=== PATIENT | female | born 1970 | race Caucasian/White ===

== ENCOUNTER 2021-08-17 10:02 | Emergency (ER) | payer MEDICAID, SELFPAY ==
--- NOTE | ~2021-08-17 | CT_ITS ---
EXAMINATION: CT HEAD W/O IV CONTRAST CT CERVICAL SPINE W/O IV CONTRAST CLINICAL INFORMATION: 50-year-old female with history of fall, head strike, headache and neck pain. COMPARISON: Head CT and C-spine CT from 06/01/2020. TECHNIQUE: Head - Contiguous axial imaging of the head was performed from the skull base to the vertex without the administration of intravenous contrast, and axial images are reconstructed at 2 mm and 5 mm slice thickness. Cervical spine - A volumetric, helical CT acquisition of the cervical spine was obtained without contrast; in addition to the standard set of axial images, multiplanar reformatted images were provided in the coronal and sagittal imaging planes. This CT examination was performed using dose optimization techniques as appropriate, variously including the following: *Automated exposure control *Adjustment of mA and/or kV according to patient size (this includes techniques or standardized protocols for targeted exams where dose is matched to indication/reason for exam; i.e. extremities or head) *Use of iterative reconstruction technique DLP: 1314 mGy-cm (total) FINDINGS: HEAD: No acute abnormality. No evidence of intracranial hemorrhage, major vascular territory infarction, focal mass effect or midline shift. Toussaint to white matter differentiation is preserved. The ventricles have normal size and configuration. No extra-axial fluid collections. The calvarium is intact and the visualized paranasal sinuses, mastoid air cells and middle ear cavities are clear. The temporomandibular joints are unremarkable. The visualized orbits and globes are intact. CERVICAL SPINE: The craniocervical junction is normal. The occipital condyles, dens and atlantodental articulation are intact. The vertebral body heights and alignment are maintained. No fractures in the anterior or posterior elements. No prevertebral soft tissue swelling. Prior discectomy and anterior fusion at C5-C6 and C6-C7. No hardware loosening. Prominent anterior osteophytes are noted at C3 and C4 levels. Mild degenerative narrowing of disc space and anterior osteophyte formation at C7-T1. The posterior osteophytes and/or posterior ligament ossification at the level of spinal fusion chronically narrow the central spinal canal to approximately 0.9 -1 cm AP dimension. The hypertrophied right-sided uncovertebral joint at C6-C7 causes moderate to high-grade foraminal stenosis. No spinal hematoma or focal fluid collection in the visualized neck. The examined lung apices are clear. A noncalcified, hypodense nodule in the inferior left thyroid lobe measures up to 1.3 cm maximum dimension. No follow-up imaging recommended. Note that follow-up imaging is not typically recommended for incidentally detected thyroid nodules of less than 1.5 cm size. There is a bone island of the medial left clavicle. No suspicious osseous lesion.. CT/CT cervical spine wo con IMPRESSION: * No acute intracranial pathology. * No fracture or malalignment in the degenerated and surgically fused cervical spine.
--- NOTE | ~2021-08-17 | XR_ITS ---
EXAMINATION: XR KNEE, LEFT CLINICAL INFORMATION: Fall. Knee pain. COMPARISON: None TECHNIQUE: Four views of the left knee. FINDINGS: Bones have normal alignment. No acute fracture, subluxation or joint effusion. There is an enthesophyte at the lower pole of the patella. Small osteophytes are present at the medial tibiofemoral compartment. XR/XR knee LT 4V IMPRESSION: * No fracture or malalignment at the left knee. * Mild osteoarthritis of the medial tibiofemoral compartment.
[2021-08-17 10:03] VITALS: BP 145/76; PULSE 73; RESP 18; TEMP 36.8; O2SAT 96; BMI 37.1
--- NOTE | 2021-08-17 10:17 | ED.FALL ---
HPI - Fall General Chief Complaint: Fall Stated Complaint: fall l knee inj Time Seen by Provider: 08/17/21 10:13 Source: patient Mode of arrival: ambulatory Limitations: no limitations History of Present Illness HPI Narrative: 50-year-old female past medical history significant for depression and hypertension presents to the emergency department with complaints of left knee pain, headache, upper lip pain status post slip and fall this morning. Patient tells me she was downstairs in her basement, she slipped on a wet patch, falling forward she landed on all fours, hit her left knee, banged her head very hard on cement. She tells me that she bit her upper lip when she fell. Since the fall she has been having a severe generalized headache, denies vision changes or photophobia. Patient tells me her head has never hurt that bad before. She is complaining of left knee pain that is worse with movement better at rest. She tells me that there is an abrasion to the left knee. She denies loss of consciousness, chest pain, shortness of breath, fevers, chills, abdominal pain, weakness, dizziness, vision changes, photophobia, tinnitus, neck pain. complaint: fall Onset (ago): hour(s) (1) Fall from: standing Fall witnessed: no Place fall occurred: home Loss of consciousness: none Prolonged down time: no Symptoms prior to fall: none Context: tripped/slipped Location of injury: head and other (left knee ) Severity: severe Severity scale (1-10): 10 Quality: throbbing Associated symptoms (after fall): headache Related Data Previous Rx's Medication Instructions Recorded cyclobenzaprine 10 mg tablet 10 mg PO BEDTIME PRN #7 tab 08/17/21 lidocaine 5 % topical patch 1 patch TOPICAL DAILY PRN #15 ea 08/17/21 naproxen 500 mg tablet 500 mg PO BID PRN #14 tab 08/17/21 Allergies Allergy/AdvReac Type Severity Reaction Status Date / Time bupropion [From WELLBUTRIN] Allergy Unknown UNKNOWN Unverified 06/07/20 15:03 Sulfa (Sulfonamide Allergy Unknown UNKNOWN Unverified 06/07/20 15:03 Antibiotics) [SULFA (SULFONAMIDE ANTIBIOTICS)] Review of Systems Review of Systems: Constitutional : No Weight loss, No Fever, No Chills, No Fatigue, No Malaise ENT/Mouth : No sore throat, No Rhinorrhea Eyes: No Eye Pain, No Swelling, No Redness Cardiovascular : No Chest Pain, No SOB, No Dyspnea on Exertion, No Orthopnea, No Edema, No Palpitations Respiratory : No Cough, No Sputum, No Wheezing Gastrointestinal : No Nausea, No Vomiting, No Diarrhea, No Constipation, No abdominal Pain, No Hematochezia, No Melena Genitourinary : No Dysuria, No Urinary Frequency, No Hematuria, Musculoskeletal : + joint pain, No Myalgias, No Joint Swelling Skin : No Skin Lesions, No rash, + cut on lip Neuro : No Weakness, No Numbness, No Dizziness, + Headache All other systems reviewed and are negative [facility] Past Medical History Attestation statement: The following information was validated with the patient. Source: old records reviewed and nursing notes reviewed Medical History (Updated 08/17/21 @ 11:59 by STEVEN Hathaway) Depression HTN (hypertension) Social History Social History Advance Directives: No Advance Directives Information Provided: No Patient : No Physical Exam Vital Signs: Vital Signs: Last Vital Signs Temp 98.2 F 08/17/21 10:03 Pulse 73 08/17/21 10:03 Resp 19 08/17/21 11:35 BP 145/76 H 08/17/21 10:03 Pulse Ox 96 08/17/21 10:03 Body Mass Index 37.1 Vital signs are stable, patient noted to be slightly hypertensive. Appearance: Alert.? Oriented X3.? No acute distress.? Head: Normocephalic, atraumatic, no step-offs or deformities. No meningeal sings Eyes: Pupils equal, round and reactive to light.?EOMI ENT: Pharynx normal.?+ small puncture wound to upper lip + pain with palpation of nose. Neck: Normal inspection.? Neck supple.? CVS: Normal heart rate and rhythm.? Pulses normal.? Respiratory: No respiratory distress.? Breath sounds normal.? Abdomen: Soft and nontender.? Skin: Skin warm and dry.? Normal skin color.? Normal skin turgor.?+ small abrasion to left knee Extremities: No lower extremity edema.? No calf ttp. 5/5 strength to bilateral upper and lower extremities Back: No midline tenderness, no C-spine tenderness, full range of motion, no CVA tenderness bilaterally Neuro: Oriented X 3.? No motor deficit.? No sensory deficit. 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 Course Reevaluation(s) Reevaluation #1: X-ray of the left knee shows osteoarthritis. CT of the head/cervical spine shows degenerative changes, an incidental finding of a left-sided thyroid nodule, no intracranial hemorrhage, stroke or fractures noted. At this time patient is safe for discharge home with PCP follow-up. She has been advised to return to the emergency department with new or worsening symptoms. Patients symptoms likely secondary to fall, likely concussion. Time: 11:58 MDM - Fall MDM Narrative Medical decision making narrative: 1018 50-year-old female past medical history significant for depression and hypertension presents to the emergency department with complaints of left knee pain, headache and pain to upper lip status post trip and fall this am in her basement. No LOC. Not on thinners. Upon physical examination patient appears well, she is in no acute distress. Vital signs are stable, slightly hypertensive. S1-S2 appreciated free of murmurs. Rapid regular rhythm is noted. Lungs are clear to auscultation. Head normocephalic, atraumatic no step-offs or deformities. Pupils equal round and reactive to light bilaterally, extraocular movements intact. No C-spine tenderness. Full range of motion to neck. No meningeal signs. There is a small puncture wound noted to the upper lip, no need for repair at this time. No broken teeth. Patient reports pain with palpation of nose, no deformities or step-offs noted. There is a small abrasion noted to the left knee. Bilateral upper and lower extremities with full range of motion, and 5/5 strength. No focal neuro deficits. Patient ambulating with a steady gait. Plan at this time give toradol for headache. CT head and neck rule out fractures/ICH. No need to intervene on abrasions, can not suture these. Medical Records Attestation: I reviewed the patient's medical records. Lab Data Attestation: I reviewed the patient's lab results. Imaging Data Left knee Xray : Attestation: I personally reviewed and interpreted this imaging study as follows: Radiologist's impression: XR/XR knee LT 4V IMPRESSION: *? No fracture or malalignment at the left knee. *? Mild osteoarthritis of the medial tibiofemoral compartment. ? CT head/c-sspine : Attestation: I personally reviewed and interpreted this imaging study as follows: Radiologist's impression: CT/CT head/brain wo con IMPRESSION: *? No acute intracranial pathology. *? No fracture or malalignment in the degenerated and surgically fused cervical spine. Critical Care Time Critical Care Time Critical Care Time: No Discharge Plan Discharge Clinical Impression: Thyroid nodule Fall Qualifiers: Encounter type: initial encounter Qualified Code(s): W19.XXXA - Unspecified fall, initial encounter Headache Qualifiers: Headache type: unspecified Headache chronicity pattern: acute headache Intractability: intractable Qualified Code(s): R51.9 - Headache, unspecified Concussion without loss of consciousness Qualifiers: Encounter type: initial encounter Qualified Code(s): S06.0X0A - Concussion without loss of consciousness, initial encounter Osteoarthritis Qualifiers: Osteoarthritis location: knee Osteoarthritis type: primary Laterality: left Qualified Code(s): M17.12 - Unilateral primary osteoarthritis, left knee Patient Disposition: Home, Self-Care Instructions: Acute Headache (ED), Fall Prevention (ED) Additional Instructions: Take your medications as prescribed. Follow-up with your primary care provider this week. CT negative for bleeds/fractures Incidental finding of left thyroid nodule Return to the emergency department with new or worsening symptoms. Such as vision changes, worsening headache, neck pain, fevers, chills, dizizness, chest pain, shrotness of breath In case of emergency call 911 Prescriptions: New cyclobenzaprine 10 mg tablet 10 mg PO BEDTIME PRN (Reason: muscle spasm) Qty: 7 RF: 0 lidocaine 5 % adhesive patch,medicated 1 patch topical DAILY PRN (Reason: pain) Qty: 15 RF: 0 naproxen 500 mg tablet 500 mg PO BID PRN (Reason: pain) Qty: 14 RF: 0 Referrals: Marco Berg MD [Primary Care Provider] - 2 days Stand Alone Forms: Work/School Release
[2021-08-17] MEDS: Ketorolac Tromethamine 15 MG/ML VIAL 30 MG IM (10:45)
[2021-08-17] MEDS: Cyclobenzaprine HCl 10 MG TABLET PO (11:24)
[2021-08-17 11:35] VITALS: RESP 19
== END 2021-08-17 12:13 | disposition home or self-care (01) ==
PROVIDERS: Emergency Provider Emergency Medicine; PCP Internal Medicine
DX: S06.0X0A Concussion without loss of consciousness, initial encounter (principal); R51.9 Headache, unspecified; M17.12 Unilateral primary osteoarthritis, left knee; E04.1 Nontoxic single thyroid nodule; I10 Essential (primary) hypertension; W01.0XXA Fall on same level from slipping, tripping and stumbling without subsequent striking against object, initial encounter; Y93.9 Activity, unspecified; Y92.009 Unspecified place in unspecified non-institutional (private) residence as the place of occurrence of the external cause; Y99.9 Unspecified external cause status
CPT/HCPCS: 70450; 72125; 73564; 96372; 99283; 99284; J1885

== ENCOUNTER 2023-04-24 09:50 | Emergency (ER) | payer OTHER, SELFPAY ==
--- NOTE | ~2023-04-24 | XR_ITS ---
EXAMINATION: XR CHEST CLINICAL INFORMATION: Cough, shortness of breath. COMPARISON: None available. TECHNIQUE: 2 views of the chest were obtained. FINDINGS: No significant abnormality is noted involving the heart, lungs, mediastinum, bony thorax or soft tissues. And anterior cervical fixation plate appears intact in the visualized portions. XR/XR chest 2V IMPRESSION: No acute cardiopulmonary process.
[2023-04-24 09:51] VITALS: BP 152/85; PULSE 98; RESP 18; TEMP 36.7; O2SAT 96; BMI 37.9
[2023-04-24 10:08] VITALS: BP 130/79; PULSE 90; RESP 20; TEMP 36.8; O2SAT 97
--- NOTE | 2023-04-24 10:13 | ED_ITS ---
HPI - SOB/Dyspnea General Chief Complaint: Dyspnea Stated Complaint: SOB Time Seen by Provider: 04/24/23 10:01 Source: patient Mode of arrival: ambulatory Limitations: no limitations History of Present Illness HPI Narrative: 52yo female with history of asthma, HTN who presents with complaints of cough/sob. Patient reports increased cough and shortness of breath for the past 2-3 days. She reports that she has been experiencing these symptoms more frequently since getting Covid-19 last fall. Her cough has been productive (clear sputum) over the past few days. She also states that she has chest discomfort with coughing and breathing. She has been prescribed Flovent, Albuterol inhaler and Singular, which she reports has given her some relief but she admits she is not consistent with taking them. She denies fevers, chills, nausea, vomiting, or dizziness, leg swelling/leg pain. No recent travel. No recent surgeries. No OCP use. No history or family history of DVT or PE Related Data Previous Rx's Medication Instructions Recorded cyclobenzaprine 10 mg tablet 10 mg PO BEDTIME PRN muscle spasm 08/17/21 #7 tabs lidocaine 5 % topical patch 1 patch topical DAILY PRN pain #15 08/17/21 ea naproxen 500 mg tablet 500 mg PO BID PRN pain #14 tabs 08/17/21 prednisone 20 mg tablet 60 mg PO DAILY #12 tabs 04/24/23 Allergies Allergy/AdvReac Type Severity Reaction Status Date / Time bupropion [From WELLBUTRIN] Allergy Unknown UNKNOWN Unverified 06/07/20 15:03 Sulfa (Sulfonamide Allergy Unknown UNKNOWN Unverified 06/07/20 15:03 Antibiotics) [SULFA (SULFONAMIDE ANTIBIOTICS)] Review of Systems Review of Systems: Yes all other systems are reviewed and are negative Constitutional: Constitutional: Reports no additional constitutional complaints, Denies body ache(s), Denies chills, Denies fever(s), Denies headache(s) and Denies weakness Eyes: Eyes: Reports no additional eye complaints and Denies change in vision ENT: Reports system reviewed and no additional complaints, except as documented, Denies dizziness, Denies headache(s), Denies nasal congestion, Arben es nasal discharge and Denies neck pain Cardiovascular: Cardiovascular: Reports no additional cardiovascular complaints, Reports chest pain, Denies leg edema and Reports dyspnea Respiratory: Respiratory: Reports no additional respiratory complaints, Reports cough, Reports dyspnea and Reports wheezing Gastrointestinal: Gastrointestinal: Reports no additional gastrointestinal complaints, Denies abdominal pain, Denies diarrhea, Denies nausea and Denies vomiting Genitourinary: Genitourinary: Reports no additional female genitourinary complaints and Denies urinary incontinence Musculoskeletal: Musculoskeletal: Reports no additional musculoskeletal complaints, Denies back pain, Denies arthralgias, Denies joint swelling, Denies neck pain, Denies numbness and Denies tingling Integumentary/Breasts: Skin/Breast: Reports system reviewed and no additional complaints, except as docu and Denies rash Neurologic: Reports system reviewed and no additional complaints, except as documented, Denies Abnormal speech present, Denies dizziness, Denies he adache(s), Denies numbness, Denies tingling and Denies weakness Allergic/Immunologic: Allergic/Immunologic: Reports wheezing PMFSH Past Medical History Attestation statement: The following information was validated with the patient. Source: old records reviewed and nursing notes reviewed Medical History Depression HTN (hypertension) Social History Social History Smoked in Last 30 Days: No Use of substances other than those prescribed or required for medical reasons: No Advance Directives: No Advance Directives Information Provided: Yes Physical Exam Vital Signs: Vital Signs: Last Vital Signs Temp 98 F 04/24/23 11:14 Pulse 80 04/24/23 11:14 Resp 18 04/24/23 11:14 BP 128/69 04/24/23 11:14 Pulse Ox 97 04/24/23 11:14 O2 Del Method Room Air 04/24/23 11:14 BMI result Body Mass Index 37.9 Const: General: cooperative, healthy appearing, comfortable and no acute distress Orientation/consciousness: patient oriented x3 Limitations: no limitations HEENT: Head: Yes normal to inspection Ears: hearing grossly normal bilaterally General nose exam: Normal external nose present Face and sinus: Yes normal facial exam Mouth: Normal oral and palatal mucosa present Throat: Yes posterior oropharynx normal Eyes: General: appearance normal, both eyes and all related structures Pupils: Equal, round and reactive pupils present Neck: Neck: Yes normal visual inspection Chest: Chest palpation & inspection: normal inspection of the chest Resp: Other: frequent dry cough noted mild expiratory wheezing left base Effort & Inspection: normal respiratory effort Cardio: Rate: regular rate Rhythm: regular rhythm Peripheral pulses: Peripheral pulses 2+ throughout GI: Inspection: Yes normal to inspection Palpation (GI): Soft to palpation and nontender Auscultation: normal bowel sounds Back/Spine/Pelvis: Thoracic/Lumbar Spine: thoracic and lumbar spine normal to inspection Skin: General skin exam: no rashes or lesions noted Neuro: General: patient oriented x3, no focal motor deficits and normal sensation to monofilament Cranial nerves: Yes Equal, round and reactive pupils present Cognition (Neuro): normal cognition Speech: No Abnormal speech present Gait exam (Neuro): Normal gait present Motor exam (neuro): 5/5 motor strength present throughout Extrem: General: Yes normal to inspection, Yes no pedal edema and Yes no calf tenderness Course Course Course Narrative: x-ray of the chest is normal. Patient likely has a asthma exacerbation. She was given a course of prednisone here in the ER. I will discharge her home with additional 4 days and with recommendations to take her Flovent consistently. She should follow-up with primary care doctor for any continued symptoms. Reviewed worrisome signs and symptoms of when to return to the emergency room. Comfortable plan for discharge home. Medications Administered Discontinued Medications Generic Name Dose Route Start Last Admin Trade Name Freq PRN Reason Stop Dose Admin Prednisone 60 mg 04/24/23 10:25 04/24/23 11:07 Prednisone 20 Mg Tablet PO 04/24/23 10:26 60 mg ONCE ONE Administration Medical Decision Making Medical Decision Making [facility] Narrative: this is a 52-year-old female with a history of hypertension and asthma who presents to the ER with increasing cough and shortness of breath with chest discomfort with coughing for the last few days despite intermittently using her albuterol, Flovent and Singulair. Patient reports since having COVID loss June she has had increasing asthma symptoms and her doctor did put her on Flovent and Singulair recently. She is was a take her Flovent twice daily but tells me she often forgets to take it. She has had to increase her use of albuterol over the last few days. She does not use a spacer. She denies any fevers, chills, leg swelling or leg pain. On exam the patient has a frequent dry cough. She has mild expiratory wheezing. Her vitals are stable. Her legs are normal in appearance. Will check x-ray. Patient has her albuterol on hand. She was given a spacer with instruction and she used 2 puffs while she was in the emergency room with improvement. Differential Diagnosis Differential Diagnoses: The differential diagnosis associated with the presentation includes PNA asthma exacerbation ACS- No exertional symptoms, associated vomiting or diaphoresis. Chest pain is reproducible with coughing only. AAA- Low concern with gradual onset of symptoms PTX PE- low concern with no risk factors for DVT or PE. No history or family history of same. No clinical findings concerning for DVT. No hypoxia, no tachypnea, no tachycardia. Independent Interpretation I performed an independent interpretation of an: Plain X-Ray Interpretation: I independently reviewed the x-ray and agree with the radiology report Radiology Impression Discussion of test interpretation with radiology: I have reviewed the radiologist's reading. Radiologist Impression: [address] [address] XRay Report Signed Patient: Celeste Matute MR#: [id number] : 1970 Acct:[id number] Age/Sex: 52 / F ADM Date: 04/24/23 Loc: .ED Attending Dr: Ordering Physician: Pineda Reed MD Date of Service: 04/24/23 Procedure(s): XR chest 2V Accession Number(s): [id number] cc: Pineda Reed MD~ EXAMINATION: XR CHEST CLINICAL INFORMATION: Cough, shortness of breath. COMPARISON: None available. TECHNIQUE: 2 views of the chest were obtained. FINDINGS: No significant abnormality is noted involving the heart, lungs, mediastinum, bony thorax or soft tissues. And anterior cervical fixation plate appears intact in the visualized portions. XR/XR chest 2V IMPRESSION: No acute cardiopulmonary process. ? Discharge Plan Discharge Clinical Impression: Asthma with exacerbation Patient Disposition: Home, Self-Care Instructions: Asthma (ED) Additional Instructions: Start prednisone tomorrow Always use the spacer with your albuterol Take the flovent every day as prescribed Follow-up with primary care doctor for further management of her asthma Return for worsening shortness of breath, chest pain, fever Prescriptions: New prednisone 20 mg tablet 60 mg PO DAILY Qty: 12 0RF No Action cyclobenzaprine 10 mg tablet 10 mg PO BEDTIME PRN (Reason: muscle spasm) Qty: 7 0RF lidocaine 5 % adhesive patch,medicated 1 patch topical DAILY PRN (Reason: pain) Qty: 15 0RF Rx Instructions: leave on most painful area for up to 12 hrs naproxen 500 mg tablet 500 mg PO BID PRN (Reason: pain) Qty: 14 0RF Rx Instructions: Take with food Referrals: Marco Berg MD [Primary Care Provider] - 1 week Stand Alone Forms: Work/School Release Interventions: ED Discharge Assessment Last Done: 04/24/23 11:15 Discharge Date/Time: 04/24/23 11:15
--- NOTE | 2023-04-24 10:29 | PC.NURSE ---
attempted to call respiratory to obtain spacer per joaquin jakcson request. no answer. trying again. pt talking in room with mom. airway intact. coughing. no wheezing noted.
[2023-04-24] MEDS: predniSONE 20 MG TABLET 60 MG PO (11:07)
[2023-04-24 11:14] VITALS: BP 128/69; PULSE 80; RESP 18; TEMP 36.6; O2SAT 97
== END 2023-04-24 11:15 | disposition home or self-care (01) ==
PROVIDERS: Emergency Provider Emergency Medicine; PCP Internal Medicine
DX: J45.901 Unspecified asthma with (acute) exacerbation (principal); I10 Essential (primary) hypertension; Z79.899 Other long term (current) drug therapy
CPT/HCPCS: 71046; 99283; 99284

== ENCOUNTER 2024-03-07 07:01 | Emergency (ER) | payer OTHER, SELFPAY ==
--- NOTE | ~2024-03-07 | XR_ITS ---
EXAMINATION: XR CHEST CLINICAL INFORMATION: Cough COMPARISON: 04/24/2023 TECHNIQUE: 2 views of the chest were obtained. FINDINGS: No significant abnormality is noted involving the heart, lungs, mediastinum, bony thorax or soft tissues. ACDF hardware again noted. XR/XR chest 2V IMPRESSION: Unremarkable examination.
[2024-03-07 07:09] VITALS: BP 130/81; PULSE 95; RESP 20; TEMP 37.1; O2SAT 98; BMI 37.9
[2024-03-07 07:37] LABS: MANUAL DIFF FLAG NO
[2024-03-07 07:38] LABS: Basophils Percent Auto 0.4 % (0-2); Eosinophils Absolute Auto 0.3 X10*3/uL (0.0-0.4); Eosinophils Percent Auto 2.8 % (0-4); Hematocrit 39.1 % (37.0-47.0); Hemoglobin 13.8 g/dl (12.0-16.0); Imm Gran Abs Auto 0.04 X10*3/uL (0.00-0.03); Imm Gran Pct Auto 0.4 % (0.0-0.4); Lymphocytes Absolute Auto 1.3 X10*3/uL (1.2-4.9); Lymphocytes Percent Auto 13.1 % (20-40); Mean Corpuscular HGB Conc 35.3 g/dl (31.0-35.0); Mean Corpuscular Hemoglobin 31.2 pg (27.0-33.0); Mean Corpuscular Volume 88.5 fL (80.0-98.0); Mean Platelet Volume 8.3 fL (9.4-12.3); Monocytes Absolute Auto 0.9 X10*3/uL (0.1-1.2); Monocytes Percent Auto 9.6 % (2-11); Neutrophils Absolute Auto 7.1 x10*3/uL (2.0-8.3); Neutrophils Percent Auto 73.7 % (45-73); Platelet Count 229 X10*3/uL (160-400); Red Blood Count 4.42 X10*6/uL (4.20-5.50); Red Cell Distribution Width 12.5 % (11.0-16.0); White Blood Count 9.7 X10*3/uL (4.8-10.8)
[2024-03-07 07:39] LABS: Appearance Urine Clear; Color Urine Yellow; Glucose Urine UA Negative (Negative); Leukocyte Esterase Urine Negative (Negative); Nitrite Urine Negative (Negative); PH 7.5 (5.0-9.0); Urine Blood Negative (Negative); Urine Ketones Negative (Negative); Urine Protein Negative (Neg-Trace)
[2024-03-07 07:54] LABS: IDNOW Serial# 08D9AD1C; Strep A Nucleic Acid Negative (Negative)
[2024-03-07 07:55] LABS: Alanine Aminotransferase 45 U/L (0-31); Alkaline Phosphatase 114 U/L (39-117); Anion Gap 11 (12-20); Aspartate Amino Transferase 35 U/L (5-31); Bilirubin Total 0.6 mg/dL (0.0-1.0); Blood Urea Nitrogen 7 mg/dL (9-16); Calcium 9.5 mg/dL (8.4-10.2); Carbon Dioxide 31 mmol/L (22-29); Chloride 96 mmol/L (96-108); Creatinine Clr Calc Pharmacy 119.1; Estimated Glomerular Filt Rate > 60; Glucose Random 100 mg/dL (60-115); Potassium 3.7 mmol/L (3.3-5.1); Sodium 134 mmol/L (135-145); Total Protein 7.1 g/dL (6.5-8.0)
--- NOTE | 2024-03-07 07:55 | ED_ITS ---
HPI - General Adult General Chief complaint: General Medical Stated complaint: sore throat and other issues Time Seen by Provider: 03/07/24 07:24 Source: patient and family Mode of arrival: ambulatory Limitations: no limitations History of Present Illness ED Provider: JEFFRY SNYDER narrative: 53 yo female with PMH of HTN who notes at the end of January she had a sinus infection so she started on augmentin and 40mg prednisone for 5 days. It never really got better despite neti pot and home therapies. Last thursday she developed fevers, not feeling well sore throat and had test confirmed POS strep throat and was started on PCN 500mg BID. She still feels awful and her sinuses are bother her. Today she felt she couldn't go to work she has R flank pain, cough, body aches, feverish and chills. Her throat still hurts. She is taking the PCN. 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 MD complaint: multiple complaints Onset (ago): week(s) (few) Location: head, face, mouth, chest and back Radiation: non-radiation Severity: moderate Quality: aching Pain Consistency: constant Relieving factors: none Exacerbating factors: none Associated symptoms: cough, headaches, loss of appetite, malaise and weakness Treatments prior to arrival: other (abx) Related Data Previous Rx's ?Medication ?Instructions ?Recorded cyclobenzaprine 10 mg tablet 10 mg PO BEDTIME PRN muscle spasm 08/17/21 #7 tabs lidocaine 5 % topical patch 1 patch topical DAILY PRN pain #15 08/17/21 ea naproxen 500 mg tablet 500 mg PO BID PRN pain #14 tabs 08/17/21 prednisone 20 mg tablet 60 mg (3 x 20 mg) PO DAILY #12 tabs 04/24/23 Magic Mouthwash 10 ml PO TID #240 mL 03/07/24 Diphen/Lido/Antacid 1:1:1 240 mL suspension levofloxacin 500 mg tablet 500 mg PO DAILY #10 tabs 03/07/24 ofloxacin 0.3 % ear drops 10 drp otic (ears) DAILY 7 days 03/07/24 #10 mL Allergies Allergy/AdvReac Type Severity Reaction Status Date / Time bupropion [From WELLBUTRIN] Allergy Unknown UNKNOWN Verified 03/07/24 07:10 Sulfa (Sulfonamide Allergy Unknown UNKNOWN Verified 03/07/24 07:10 Antibiotics) [SULFA (SULFONAMIDE ANTIBIOTICS)] Review of Systems 2 Review of Systems: Constitutional : pos Fever, pos Chills, pos Fatigue ENT/Mouth : pos sore throat, No Rhinorrhea Eyes: No Eye Pain, No Swelling, No Redness Cardiovascular : No Chest Pain, No SOB, No Dyspnea on Exertion Respiratory : pos Cough, No Sputum Gastrointestinal : pos Nausea, No Vomiting, No Diarrhea, No abdominal Pain Genitourinary : No Dysuria, No Urinary Frequency, No Hematuria, Musculoskeletal : No joint pain, pos Myalgias, No Joint Swelling Skin : No Skin Lesions, No rash Neuro : No Weakness, No Numbness, No Dizziness, positive Headache Psych : No Anxiety/Panic, No Depression All other systems reviewed and are negative [facility] Past Medical History Attestation statement: The following information was validated with the patient. Source: old records reviewed Medical History Depression HTN (hypertension) Social History Social History (Updated 03/07/24 @ 08:25 by Sara Ye DO) Patient Tobacco Use Status: Never used Tobacco Advance Directives: No Advance Directives Information Provided: No Physical Exam ED Vital Signs: Vital Signs - 24 hr 03/07/24 07:09 Temperature 98.8 F Pulse Rate 95 Respiratory Rate 20 Blood Pressure 130/81 Pulse Oximetry 98 Oxygen Delivery Method Room Air BMI result Body Mass Index 37.9 Appearance: Alert. Oriented X3. No acute distress. Eyes: Pupils equal, round and reactive to light. ENT: Pharynx uvula is midline no sig swelling normal ROM of neck no trismus no muffled voice or drooling exudates scant noted on tonsils bilateral AOM of both ears Neck: Normal inspection. Neck supple. CVS: Normal heart rate and rhythm. Pulses normal. Respiratory: No respiratory distress. Breath sounds normal. Abdomen: Soft and non-tender. Skin: Skin warm and dry. Normal skin color. Extremities: No lower extremity edema. Neuro: Oriented X 3. No motor deficit. No sensory deficit. Medications Administered Discontinued Medications Generic Name Dose Route Start Last Admin Trade Name Freq PRN Reason Stop Dose Admin Sodium Chloride 1,000 mls @ 999 mls/hr 03/07/24 07:40 03/07/24 08:01 Ns IV 03/07/24 08:40 999 mls/hr .Q1H1M ONE Administration Ketorolac Tromethamine 15 mg 03/07/24 07:40 03/07/24 08:01 Ketorolac Tromethamine 15 Mg/Ml Vial IVPUSH 03/07/24 07:41 15 mg ONCE ONE Administration Lidocaine/Diphenhydr/Alum/Mg/Simeth 10 ml 03/07/24 07:40 03/07/24 08:01 Mag&Al/Sim/Diphenhyd/Lidocaine 10 Ml Oral.Susp PO 03/07/24 07:41 10 ml ONCE ONE Administration Protocol Medical Decision Making Medical Decision Making MDM Narrative: 53 yo female with PMH of HTN here with recurrent sinusitis but in setting of strep throat as well - likely uncure sinusitis that has persisted and not responding to PCN therapy. She has bilateral AOM I would have started on on quinolone and drops and referred her to ENT unfortunately she is on PCN for strep throat on exam no signs of abscess or ASSOCIATE DIRECTOR OF DEVELOPMENT. She has multiple complaints and does not feel well no signs of ASSISTANT ANALYST infection. Labs, IVF, supportive medications and will start diflucan for reported yeast infection, levofloxacin and refer to ENT. Differential Diagnosis Differential Diagnoses: The differential diagnosis associated with the presentation includes viral infection, dehydration, UTI, strep infection, sinusitis Admission/Observation Consideration of admission/observation: Escalation of care including admission/observation considered stable VS, labs reassuring mild bump in LFTs can be DC home Lab Data [facility] Lab Attestation statement: I reviewed the patient's lab results. 03/07/24 07:31 03/07/24 07:31 Labs: Lab Results 03/07/24 03/07/24 Range/Units 07:31 07:32 WBC 9.7 (4.8-10.8) X10*3/uL RBC 4.42 (4.20-5.50) X10*6/uL Hgb 13.8 (12.0-16.0) g/dl Hct 39.1 (37.0-47.0) % MCV 88.5 (80.0-98.0) fL MCH 31.2 (27.0-33.0) pg MCHC 35.3 H (31.0-35.0) g/dl RDW 12.5 (11.0-16.0) % Plt Count 229 (160-400) X10*3/uL MPV 8.3 L (9.4-12.3) fL Immature Gran % (Auto) 0.4 (0.0-0.4) % Neut % (Auto) 73.7 H (45-73) % Lymph % (Auto) 13.1 L (20-40) % [place] % (Auto) 9.6 (2-11) % Eos % (Auto) 2.8 (0-4) % Baso % (Auto) 0.4 (0-2) % Lymph # (Auto) 1.3 (1.2-4.9) X10*3/uL [place] # (Auto) 0.9 (0.1-1.2) X10*3/uL Eos # (Auto) 0.3 (0.0-0.4) X10*3/uL Baso # (Auto) 0.0 (0.0-0.2) X10*3/uL Abs Immat Gran (auto) 0.04 H (0.00-0.03) X10*3/uL Absolute Neuts (auto) 7.1 (2.0-8.3) x10*3/uL Absolute Nucleated RBC 0.000 (0.0-0.012) X10*3/uL Nucleated RBC % (auto) 0.0 (0.0-0.2) /100WBC Sodium 134 L (135-145) mmol/L Potassium 3.7 (3.3-5.1) mmol/L Chloride 96 (96-108) mmol/L Carbon Dioxide 31 H (22-29) mmol/L Anion Gap 11 L (12-20) BUN 7 L (9-16) mg/dL Creatinine 0.69 (0.5-1.4) mg/dL Estim Creat Clear Calc 119.1 Estimated GFR > 60 Random Glucose 100 (60-115) mg/dL Calcium 9.5 (8.4-10.2) mg/dL Total Bilirubin 0.6 (0.0-1.0) mg/dL AST 35 H (5-31) U/L ALT 45 H (0-31) U/L Alkaline Phosphatase 114 (39-117) U/L Total Protein 7.1 (6.5-8.0) g/dL Albumin 4.0 (3.5-5.0) g/dL Urine Color Yellow Urine Appearance Clear Urine pH 7.5 (5.0-9.0) Ur Specific [place] 1.010 (1.005-1.025) Urine Protein Negative (Neg-Trace) mg/dL Urine Glucose (UA) Negative (Negative) mg/dL Urine Ketones Negative (Negative) mg/dL Urine Blood Negative (Negative) Urine Nitrite Negative (Negative) Ur Leukocyte Esterase Negative (Negative) Influenza Type A (PCR) NEGATIVE (Negative) Influenza Type B (PCR) NEGATIVE (Negative) RSV RNA Qual (PCR) NEGATIVE (Negative) SARS-CoV-2 RNA (RT-PCR) NEGATIVE (Negative) S. pyogenes GrpA SLMI Negative (Negative) Independent Interpretation I performed an independent interpretation of an: Plain X-Ray (no pneumonia) Radiology Impression Discussion of test interpretation with radiology: I have reviewed the radiologist's reading. Independent Historian Clinical information obtained from an independent historian. History obtained from or confirmed by: Parent External Record Review External record reviewed: Outpatient record Prescription Management I considered prescription management with: Pain Medication, Antibiotic and Other Discharge Plan Discharge Clinical Impression: Acute recurrent maxillary sinusitis, Otitis media of both ears with coexisting illness requiring second-line medication Patient Disposition: Home, Self-Care Instructions: Sinusitis (ED), How to Use Ear Drops (ED), Ear Infection (ED) Additional Instructions: start an over the counter probiotic now continue the PCN return for worsening symptoms, difficulty breathing, chest pain, dark urine, leg swelling or any other concerns Prescriptions: New levofloxacin 500 mg tablet 500 mg PO DAILY Qty: 10 0RF Magic Mouthwash Diphen/Lido/Antacid 1:1:1 240 mL suspension 10 ml PO TID Qty: 240 0RF Rx Instructions: Lidocaine Viscous 2 % 80mL; diphenhydramine 12.5 mg/5 mL 80mL; aluminum-mag hydrox-simeth [id number]/5mL 80mL swish and spit ofloxacin 0.3 % drops 10 drp otic (ears) DAILY 7 Days Qty: 10 0RF No Action cyclobenzaprine 10 mg tablet 10 mg PO BEDTIME PRN (Reason: muscle spasm) Qty: 7 0RF lidocaine 5 % adhesive patch,medicated 1 patch topical DAILY PRN (Reason: pain) Qty: 15 0RF Rx Instructions: leave on most painful area for up to 12 hrs naproxen 500 mg tablet 500 mg PO BID PRN (Reason: pain) Qty: 14 0RF Rx Instructions: Take with food prednisone 20 mg tablet 60 mg PO DAILY Qty: 12 0RF Stand Alone Forms: Work/School Release Print Language: Serbian
[2024-03-07] MEDS: Ketorolac Tromethamine 15 MG/ML VIAL IVPUSH (08:01)
[2024-03-07] MEDS: 0.9 % Sodium Chloride 1,000 ML 999 ML IV (08:01)
[2024-03-07] MEDS: Mag&Al/Sim/Diphenhyd/Lidocaine 10 ML ORAL.SUSP PO (08:01)
[2024-03-07 09:00] LABS: Influenza A PCR NEGATIVE (Negative); Influenza B PCR NEGATIVE (Negative); Resp Syncy Virus RNA Qual PCR NEGATIVE (Negative); SARS COV2 PCR INHOUSE NEGATIVE (Negative)
== END 2024-03-07 10:29 | disposition home or self-care (01) ==
PROVIDERS: Emergency Provider Emergency Medicine; PCP Internal Medicine
DX: J32.0 Chronic maxillary sinusitis (principal); J02.9 Acute pharyngitis, unspecified; H66.93 Otitis media, unspecified, bilateral; R11.0 Nausea; Z03.818 Encounter for observation for suspected exposure to other biological agents ruled out; Z79.899 Other long term (current) drug therapy; Z11.52 Encounter for screening for COVID-19
CPT/HCPCS: 0241U; 71046; 80053; 81003; 85025; 87651; 96361; 96374; 99283; 99284; J1885